=== PATIENT | male | born 1930 | race Caucasian/White ===

== ENCOUNTER 2020-01-27 11:32 | Inpatient (IN) | payer MEDICARE ==
[~2020-01-27] VITALS: Ht 182.9 cm; Wt 81.7 kg
[2020-01-27] MEDS ORDERED: SODIUM CHLORIDE FLUSH 10ML SYR IVF ONE (12:00)
[2020-01-27] MEDS ORDERED: WARF2.5T32 PO (12:11)
[2020-01-27] MEDS ORDERED: CHOL10003 PO (12:11)
[2020-01-27] MEDS ORDERED: AMOX1TAB64 PO (12:11)
[2020-01-27] MEDS ORDERED: LISI2.5T PO (12:11)
[2020-01-27] MEDS ORDERED: METO25TA35 PO (12:11)
[2020-01-27] MEDS ORDERED: ACET325T14 PO (12:11)
[2020-01-27] MEDS ORDERED: ASPI-496 PO (12:11)
[2020-01-27] MEDS ORDERED: DICL100G19 TD (12:11)
--- NOTE | 2020-01-27 12:32 | NUR ---
THIS IS AN 89 YO MALE PT BIB CARE FLIGHT FROM [place] WHERE PT WAS INTITIALLY SEEN AFTER PT STOPPED TAKING MEDS, STOPPED EATING AND DEVELOPED CONFUSION X 5 DAYS. DEVELOPED FEVER LAST NIGHT. PT RECEIVED ROCEPHIN, LASIX AND A HAMPTON CATHETER PRIOR TO ARRIVAL. HAMPTON CATHETER WAS PLACED AT [facility]. URINE APPEARS CLEAR AND YELLOW. PT AFEBRILE HERE. NO COUGHING, SOB OR DIFFICULTY BREATHING NOTED AT THIS TIME. PACED RHYTHM NOTED ON [employer] IN THE 70'S. PT DROWSY, BUT AWAKENS AND FOLLOWS COMMANDS AND ANSWERS BASIC QUESTIONS APPROPRIATELY. PER CARE FLIGHT PT WAS "CONFUSED". UNK BASELINE PER CAREFLIGHT. CALL LIGHT WITHIN REACH. WILL CONT TO MONITOR PT.
[2020-01-27 12:34] LABS: MEAN CORPUSCULAR HEMOGLOBIN 32.2 pg (27.5-34.5); MEAN CORPUSCULAR HGB CONC 33.2 g/dL (33.2-36.2); MEAN CORPUSCULAR VOLUME 97.1 fL (81-97); MEAN PLATELET VOLUME 6.8 fL (7.4-10.4); PLATELET COUNT 210 x10^3/uL (130-400); RED BLOOD COUNT 3.87 x10^6/uL (4.38-5.82); RED CELL DISTRIBUTION WIDTH 15.6 % (9.4-14.8)
--- NOTE | 2020-01-27 12:35 | NUR ---
PT TO IMAGING VIA [facility] WITH TRANSPORT STAFF.
[2020-01-27 12:43] LABS: ALANINE AMINOTRANSFERASE 16 U/L (12-78); ALBUMIN 2.7 g/dL (3.4-5.0); ANION GAP 8 mmol/L (5-15); CALCIUM 8.3 mg/dL (8.5-10.1); CHLORIDE 107 mmol/L (98-107)
[2020-01-27 12:45] LABS: ALKALINE PHOSPHATASE 97 U/L (45-117); BILIRUBIN,TOTAL 1.2 mg/dL (0.2-1.0)
[2020-01-27 12:48] LABS: BASOPHILS # (AUTO) 0.01 x10^3/uL (0-0.1); BASOPHILS % (AUTO) 0 % (0-1); EOSINOPHILS # (AUTO) 0.01 x10^3/uL (0-0.4); EOSINOPHILS % (AUTO) 0 % (1-7); LYMPHOCYTES # (AUTO) 0.28 x10^3/uL (1-3.4); LYMPHOCYTES % (AUTO) 2 % (22-44); MD SCAN; MONOCYTES # (AUTO) 0.62 x10^3/uL (0.2-0.8); MONOCYTES % (AUTO) 4 % (2-9); NEUTROPHILS # (AUTO) 13.59 x10^3/uL (1.8-6.8); NEUTROPHILS % (AUTO) 94 % (42-75)
[2020-01-27] MEDS ORDERED: POTASSIUM CHLORIDE 20 MEQ TAB.ER.PRT PO ONE (13:00)
--- NOTE | 2020-01-27 13:07 | NUR ---
PT FAILED SWALLOW EVAL COUGHING AFTER DRINKING ONE SMALL SIP OF WATER. DISCUSSED WITH VLADIMIR CORONEL AND PT WILL BE SWITCHED FROM PO TO IV K+. PT ON CONT BP, CARDIAC AND O2 MONITORS. CALL LIGHT WITHIN REACH.
[2020-01-27] MEDS ORDERED: POTASSIUM CHLORIDE 40 MEQ in SODIUM CHLORIDE 0.9% 500 ML IV ONE (13:30)
--- NOTE | 2020-01-27 14:51 | NUR ---
THIS TECH TRANSPORTED PT WITH [facility].
[2020-01-27 15:07] VITALS: BP 95/64
[2020-01-27] MEDS ORDERED: ACETAMINOPHEN 325 MG TABLET PO PRN (16:00)
[2020-01-27 16:15] LABS: INTERNATIONAL NORMALIZED RATIO 2.35 (0.93-1.1); PROTHROMBIN TIME 25.1 Seconds (9.6-11.5)
[2020-01-27 16:24] LABS: TROPONIN I 0.347 ng/mL (0.000-0.045)
[2020-01-27] MEDS: CEFTRIAXONE PMX 1GM/50ML 50 ML IV SCH (17:01)
[2020-01-27 17:47] LABS: MICROSCOPIC AUTO
[2020-01-27 17:49] LABS: CULTURE INDICATED? YES
[2020-01-27] MEDS: AZITHROMYCIN 500 MG in SODIUM CHLORIDE 0.9% 250 ML IV SCH (17:59)
[2020-01-27] MEDS ORDERED: WARFARIN 2 MG TABLET PO-COUM ONE (18:00)
[2020-01-27] MEDS ORDERED: METOPROLOL TARTRATE 25 MG TAB PO SCH (21:00)
[2020-01-27 21:58] VITALS: BP 94/58
[2020-01-27] MEDS: ACETAMINOPHEN 325 MG TABLET PO SCH (22:07)
[2020-01-27 22:26] LABS: TROPONIN I 0.291 ng/mL (0.000-0.045)
[2020-01-28 00:12] VITALS: BP 102/57
[2020-01-28 06:51] LABS: MEAN CORPUSCULAR HEMOGLOBIN 32.2 pg (27.5-34.5); MEAN CORPUSCULAR VOLUME 97.8 fL (81-97); MEAN PLATELET VOLUME 6.8 fL (7.4-10.4); PLATELET COUNT 171 x10^3/uL (130-400); RED BLOOD COUNT 4.17 x10^6/uL (4.38-5.82); RED CELL DISTRIBUTION WIDTH 15.9 % (9.4-14.8)
[2020-01-28 06:57] LABS: INTERNATIONAL NORMALIZED RATIO 3.17 (0.93-1.1)
[2020-01-28 06:59] LABS: CHLORIDE 104 mmol/L (98-107)
[2020-01-28 07:00] LABS: ALANINE AMINOTRANSFERASE 19 U/L (12-78); ALBUMIN 2.6 g/dL (3.4-5.0); ANION GAP 9 mmol/L (5-15); CALCIUM 8.7 mg/dL (8.5-10.1)
[2020-01-28 07:02] LABS: ALKALINE PHOSPHATASE 98 U/L (45-117); BILIRUBIN,TOTAL 0.7 mg/dL (0.2-1.0); TOTAL PROTEIN 7.1 g/dL (6.4-8.2)
[2020-01-28 07:14] LABS: BASOPHILS % (AUTO) 0 % (0-1); EOSINOPHILS # (AUTO) 0.01 x10^3/uL (0-0.4); EOSINOPHILS % (AUTO) 0 % (1-7); LYMPHOCYTES # (AUTO) 0.56 x10^3/uL (1-3.4); LYMPHOCYTES % (AUTO) 7 % (22-44); MD SCAN; MONOCYTES # (AUTO) 0.55 x10^3/uL (0.2-0.8); MONOCYTES % (AUTO) 7 % (2-9); NEUTROPHILS # (AUTO) 7.31 x10^3/uL (1.8-6.8); NEUTROPHILS % (AUTO) 87 % (42-75)
[2020-01-28] MEDS ORDERED: HOLD COUMADIN MC PRN (07:30)
[2020-01-28] MEDS ORDERED: MAGNESIUM SULFATE PMX 2GM/50ML 50 ML IV ONE (07:30)
[2020-01-28 08:40] VITALS: BP 131/79
[2020-01-28] MEDS: ASPIRIN 81 MG TABLET EC PO SCH (09:00)
--- NOTE | 2020-01-28 12:10 | NUR ---
REC: [facility]IC[facility] SPECIALIST intervention in SNF. Addendum: 01/28/20 at 1211 by Camila KUNZ Amended: Links added.
[2020-01-28 12:28] VITALS: BP 155/79
[2020-01-28] MEDS ORDERED: HALOPERIDOL 5 MG/ML IV PRN (18:00)
[2020-01-28] MEDS: CEFTRIAXONE PMX 1GM/50ML 50 ML IV SCH (18:13)
[2020-01-28] MEDS: AZITHROMYCIN 500 MG in SODIUM CHLORIDE 0.9% 250 ML IV SCH (18:13)
[2020-01-28 18:26] VITALS: BP 143/85
[2020-01-28] MEDS: ACETAMINOPHEN 325 MG TABLET PO SCH (19:47)
[2020-01-29 04:00] VITALS: BP 143/83
[2020-01-29] MEDS ORDERED: FURO10DI PO (05:46)
[2020-01-29 06:23] LABS: BASOPHILS % (AUTO) 0 % (0-1); EOSINOPHILS # (AUTO) 0.05 x10^3/uL (0-0.4); EOSINOPHILS % (AUTO) 1 % (1-7); INTERNATIONAL NORMALIZED RATIO 2.63 (0.93-1.1); LYMPHOCYTES # (AUTO) 0.78 x10^3/uL (1-3.4); LYMPHOCYTES % (AUTO) 11 % (22-44); MD NO; MEAN CORPUSCULAR HEMOGLOBIN 32.3 pg (27.5-34.5); MEAN CORPUSCULAR HGB CONC 33.5 g/dL (33.2-36.2); MEAN CORPUSCULAR VOLUME 96.3 fL (81-97); MEAN PLATELET VOLUME 7.4 fL (7.4-10.4); MONOCYTES # (AUTO) 0.78 x10^3/uL (0.2-0.8); MONOCYTES % (AUTO) 11 % (2-9); NEUTROPHILS # (AUTO) 5.76 x10^3/uL (1.8-6.8); NEUTROPHILS % (AUTO) 78 % (42-75); PLATELET COUNT 160 x10^3/uL (130-400); PROTHROMBIN TIME 28.1 Seconds (9.6-11.5); RED BLOOD COUNT 3.85 x10^6/uL (4.38-5.82); RED CELL DISTRIBUTION WIDTH 15.8 % (9.4-14.8)
[2020-01-29 06:27] LABS: ANION GAP 12 mmol/L (5-15); CALCIUM 8.3 mg/dL (8.5-10.1); CHLORIDE 106 mmol/L (98-107)
[2020-01-29 06:28] LABS: CREATININE 1.62 mg/dL (0.7-1.3)
[2020-01-29] MEDS ORDERED: VANCOMYCIN PER PHARMACY MC PRN (08:00)
[2020-01-29] MEDS ORDERED: PHARMACOKINETIC CONSULTATION MC ONE (08:00)
[2020-01-29] MEDS ORDERED: hydrALAzine 20 MG/ML, 1ML IVPush PRN (08:00)
[2020-01-29] MEDS ORDERED: PHARMACOKINETIC MONITORING MC PRN (08:00)
[2020-01-29] MEDS ORDERED: LABETALOL 5MG/ML, 20ML IVPush PRN (08:00)
[2020-01-29 08:17] VITALS: BP 145/93
[2020-01-29] MEDS: ASPIRIN 81 MG TABLET EC PO SCH (08:23)
[2020-01-29] MEDS ORDERED: VANCOMYCIN 1,600 MG in SODIUM CHLORIDE 0.9% 250 ML IV SCH (09:00)
[2020-01-29 15:01] VITALS: BP 144/87
--- NOTE | 2020-01-29 15:33 | NUR ---
Rec: chopped/thin liquids; do not anticipate need for ICE [employer]URF[employer] MACHINE [employer]ORS intervention at time of discharge. Addendum: 01/29/20 at 1534 by Camila KUNZ Amended: Links added.
[2020-01-29] MEDS: CEFTRIAXONE PMX 1GM/50ML 50 ML IV SCH (15:40)
[2020-01-29] MEDS ORDERED: WARFARIN 2.5 MG TABLET PO-COUM ONE (18:00)
[2020-01-29 19:34] VITALS: BP 138/87
[2020-01-29] MEDS: ACETAMINOPHEN 325 MG TABLET PO SCH (20:53)
[2020-01-30 00:34] VITALS: BP 149/86
[2020-01-30 06:15] VITALS: BP 148/89
[2020-01-30 06:24] LABS: BASOPHILS # (AUTO) 0.02 x10^3/uL (0-0.1); BASOPHILS % (AUTO) 0 % (0-1); EOSINOPHILS # (AUTO) 0.05 x10^3/uL (0-0.4); EOSINOPHILS % (AUTO) 1 % (1-7); LYMPHOCYTES % (AUTO) 17 % (22-44); MD NO; MEAN CORPUSCULAR HEMOGLOBIN 31.9 pg (27.5-34.5); MEAN CORPUSCULAR HGB CONC 32.9 g/dL (33.2-36.2); MEAN CORPUSCULAR VOLUME 96.9 fL (81-97); MEAN PLATELET VOLUME 7.7 fL (7.4-10.4); MONOCYTES # (AUTO) 0.97 x10^3/uL (0.2-0.8); MONOCYTES % (AUTO) 13 % (2-9); NEUTROPHILS # (AUTO) 5.42 x10^3/uL (1.8-6.8); NEUTROPHILS % (AUTO) 70 % (42-75); PLATELET COUNT 160 x10^3/uL (130-400); RED BLOOD COUNT 3.98 x10^6/uL (4.38-5.82)
[2020-01-30 06:32] LABS: ANION GAP 12 mmol/L (5-15); CALCIUM 8.6 mg/dL (8.5-10.1); CHLORIDE 106 mmol/L (98-107); CREATININE 1.62 mg/dL (0.7-1.3)
[2020-01-30 06:42] LABS: INTERNATIONAL NORMALIZED RATIO 2.86 (0.93-1.1); PROTHROMBIN TIME 30.6 Seconds (9.6-11.5)
[2020-01-30] MEDS ORDERED: POTASSIUM CHLORIDE 20 MEQ TAB.ER.PRT PO ONE (08:00)
[2020-01-30] MEDS ORDERED: POTASSIUM CHLORIDE 20 MEQ PACKET ONE (08:58)
[2020-01-30] MEDS: LISINOPRIL 5 MG TABLET PO SCH (09:26)
[2020-01-30] MEDS: ASPIRIN 81 MG TABLET EC PO SCH (09:26)
[2020-01-30 12:28] VITALS: BP 150/91
[2020-01-30 16:14] VITALS: BP 138/86
[2020-01-30] MEDS: CEFTRIAXONE PMX 1GM/50ML 50 ML IV SCH (16:48)
[2020-01-30] MEDS ORDERED: WARFARIN 2.5 MG TABLET PO-COUM ONE (18:00)
[2020-01-30] MEDS: ACETAMINOPHEN 325 MG TABLET PO SCH (20:02)
[2020-01-30 20:50] VITALS: BP 155/89
[2020-01-31 04:58] LABS: INTERNATIONAL NORMALIZED RATIO 3.23 (0.93-1.1); PROTHROMBIN TIME 34.7 Seconds (9.6-11.5)
[2020-01-31 05:02] LABS: ANION GAP 7 mmol/L (5-15); CALCIUM 8.3 mg/dL (8.5-10.1); CHLORIDE 108 mmol/L (98-107); CREATININE 1.34 mg/dL (0.7-1.3)
[2020-01-31] MEDS ORDERED: PHARMACY MAY ADJ FOR RENAL FX MC PRN (07:00)
[2020-01-31] MEDS: CEFAZOLIN PMX 1GM/50ML 50 ML IV SCH ×3 (08:00→23:19)
[2020-01-31] MEDS: ASPIRIN 81 MG TABLET EC PO SCH (08:08)
[2020-01-31] MEDS: LISINOPRIL 5 MG TABLET PO SCH (08:08)
[2020-01-31 08:11] VITALS: BP 156/87
--- NOTE | 2020-01-31 12:47 | NUR ---
DC to SNF for skilled PT to reduce fall risk Addendum: 01/31/20 at 1250 by Christos Haynes PT Amended: Links added.
[2020-01-31 14:33] VITALS: BP 159/95
[2020-01-31] MEDS ORDERED: WARFARIN 2 MG TABLET PO-COUM ONE (18:00)
[2020-01-31 19:33] VITALS: BP 155/86
[2020-01-31] MEDS: ACETAMINOPHEN 325 MG TABLET PO SCH (19:54)
[2020-02-01 00:44] VITALS: BP 152/87
[2020-02-01 05:59] LABS: BASOPHILS # (AUTO) 0.02 x10^3/uL (0-0.1); BASOPHILS % (AUTO) 0 % (0-1); EOSINOPHILS # (AUTO) 0.13 x10^3/uL (0-0.4); EOSINOPHILS % (AUTO) 2 % (1-7); INTERNATIONAL NORMALIZED RATIO 3.43 (0.93-1.1); LYMPHOCYTES # (AUTO) 1.43 x10^3/uL (1-3.4); LYMPHOCYTES % (AUTO) 21 % (22-44); MD NO; MEAN CORPUSCULAR HGB CONC 33.2 g/dL (33.2-36.2); MEAN CORPUSCULAR VOLUME 96.3 fL (81-97); MEAN PLATELET VOLUME 7.5 fL (7.4-10.4); MONOCYTES # (AUTO) 0.89 x10^3/uL (0.2-0.8); MONOCYTES % (AUTO) 13 % (2-9); NEUTROPHILS # (AUTO) 4.43 x10^3/uL (1.8-6.8); NEUTROPHILS % (AUTO) 64 % (42-75); PLATELET COUNT 203 x10^3/uL (130-400); PROTHROMBIN TIME 36.8 Seconds (9.6-11.5); RED BLOOD COUNT 4.01 x10^6/uL (4.38-5.82); RED CELL DISTRIBUTION WIDTH 15.5 % (9.4-14.8)
[2020-02-01 06:03] LABS: ALBUMIN 2.5 g/dL (3.4-5.0); ANION GAP 9 mmol/L (5-15); CALCIUM 8.5 mg/dL (8.5-10.1); CHLORIDE 105 mmol/L (98-107)
[2020-02-01 06:07] LABS: ALANINE AMINOTRANSFERASE 18 U/L (12-78); ALKALINE PHOSPHATASE 108 U/L (45-117); BILIRUBIN,TOTAL 0.5 mg/dL (0.2-1.0); CREATININE 1.29 mg/dL (0.7-1.3); TOTAL PROTEIN 6.8 g/dL (6.4-8.2)
[2020-02-01 06:44] VITALS: BP 148/86
[2020-02-01] MEDS: ASPIRIN 81 MG TABLET EC PO SCH (07:31)
[2020-02-01] MEDS: CEFAZOLIN PMX 1GM/50ML 50 ML IV SCH (07:31)
[2020-02-01] MEDS: LISINOPRIL 5 MG TABLET PO SCH (07:32)
[2020-02-01] MEDS ORDERED: POTASSIUM CHLORIDE 20 MEQ TAB.ER.PRT PO ONE (08:31)
[2020-02-01] MEDS ORDERED: LISINOPRIL 10 MG TABLET PO SCH (09:00)
[2020-02-01] MEDS: CEFAZOLIN PMX 2GM/50ML 50 ML IVPB SCH ×2 (10:28→18:15)
[2020-02-01 13:00] VITALS: BP 145/85
[2020-02-01] MEDS ORDERED: WARFARIN 1 MG TABLET PO-COUM ONE (18:00)
[2020-02-01 19:31] VITALS: BP 151/85
[2020-02-01] MEDS: ACETAMINOPHEN 325 MG TABLET PO SCH (20:33)
[2020-02-02 00:22] VITALS: BP 141/86
[2020-02-02] MEDS: CEFAZOLIN PMX 2GM/50ML 50 ML IVPB SCH ×3 (03:00→18:01)
[2020-02-02 05:46] LABS: BASOPHILS # (AUTO) 0.04 x10^3/uL (0-0.1); BASOPHILS % (AUTO) 1 % (0-1); EOSINOPHILS % (AUTO) 2 % (1-7); LYMPHOCYTES # (AUTO) 1.73 x10^3/uL (1-3.4); LYMPHOCYTES % (AUTO) 21 % (22-44); MD NO; MEAN CORPUSCULAR HEMOGLOBIN 31.6 pg (27.5-34.5); MEAN CORPUSCULAR VOLUME 95.9 fL (81-97); MEAN PLATELET VOLUME 7.2 fL (7.4-10.4); MONOCYTES # (AUTO) 0.82 x10^3/uL (0.2-0.8); MONOCYTES % (AUTO) 10 % (2-9); NEUTROPHILS # (AUTO) 5.33 x10^3/uL (1.8-6.8); NEUTROPHILS % (AUTO) 66 % (42-75); PLATELET COUNT 227 x10^3/uL (130-400); RED BLOOD COUNT 3.99 x10^6/uL (4.38-5.82); RED CELL DISTRIBUTION WIDTH 15.6 % (9.4-14.8)
[2020-02-02 05:48] LABS: INTERNATIONAL NORMALIZED RATIO 2.74 (0.93-1.1); PROTHROMBIN TIME 29.3 Seconds (9.6-11.5)
[2020-02-02 05:52] LABS: ALBUMIN 2.5 g/dL (3.4-5.0); ANION GAP 9 mmol/L (5-15); CHLORIDE 106 mmol/L (98-107)
[2020-02-02 05:56] LABS: ALANINE AMINOTRANSFERASE 12 U/L (12-78); ALKALINE PHOSPHATASE 97 U/L (45-117); BILIRUBIN,TOTAL 0.6 mg/dL (0.2-1.0); TOTAL PROTEIN 6.7 g/dL (6.4-8.2)
[2020-02-02 07:14] VITALS: BP 157/92
[2020-02-02] MEDS: POTASSIUM CHLORIDE 20 MEQ TAB.ER.PRT PO SCH ×2 (10:37→18:00)
[2020-02-02] MEDS: ASPIRIN 81 MG TABLET EC PO SCH (10:37)
[2020-02-02] MEDS: AMLODIPINE 10 MG TAB PO SCH (10:37)
[2020-02-02] MEDS: CHLORTHALIDONE 25 MG TABLET PO SCH (10:38)
[2020-02-02] MEDS ORDERED: PROPOFOL 10 MG/ML, 20ML ONE (13:21)
[2020-02-02 14:16] VITALS: BP 110/65
[2020-02-02] MEDS ORDERED: WARFARIN 2 MG TABLET PO-COUM ONE (18:00)
[2020-02-02 19:32] VITALS: BP 133/88
[2020-02-02] MEDS: ACETAMINOPHEN 325 MG TABLET PO SCH (19:40)
[2020-02-03 01:29] VITALS: BP 146/88
[2020-02-03] MEDS: CEFAZOLIN PMX 2GM/50ML 50 ML IVPB SCH ×3 (01:58→17:28)
[2020-02-03 06:29] LABS: BASOPHILS # (AUTO) 0.02 x10^3/uL (0-0.1); BASOPHILS % (AUTO) 0 % (0-1); EOSINOPHILS # (AUTO) 0.22 x10^3/uL (0-0.4); EOSINOPHILS % (AUTO) 3 % (1-7); LYMPHOCYTES # (AUTO) 1.38 x10^3/uL (1-3.4); LYMPHOCYTES % (AUTO) 17 % (22-44); MD NO; MEAN CORPUSCULAR HEMOGLOBIN 31.9 pg (27.5-34.5); MEAN CORPUSCULAR HGB CONC 33.1 g/dL (33.2-36.2); MEAN CORPUSCULAR VOLUME 96.4 fL (81-97); MEAN PLATELET VOLUME 7.1 fL (7.4-10.4); MONOCYTES # (AUTO) 0.72 x10^3/uL (0.2-0.8); MONOCYTES % (AUTO) 9 % (2-9); NEUTROPHILS # (AUTO) 5.68 x10^3/uL (1.8-6.8); NEUTROPHILS % (AUTO) 71 % (42-75); PLATELET COUNT 296 x10^3/uL (130-400); RED CELL DISTRIBUTION WIDTH 15.9 % (9.4-14.8)
[2020-02-03 06:32] LABS: INTERNATIONAL NORMALIZED RATIO 2.38 (0.93-1.1); PROTHROMBIN TIME 25.5 Seconds (9.6-11.5)
[2020-02-03 06:37] LABS: ALBUMIN 2.7 g/dL (3.4-5.0); ANION GAP 10 mmol/L (5-15); CALCIUM 8.5 mg/dL (8.5-10.1); CHLORIDE 106 mmol/L (98-107)
[2020-02-03 06:41] LABS: ALANINE AMINOTRANSFERASE 8 U/L (12-78); ALKALINE PHOSPHATASE 109 U/L (45-117); BILIRUBIN,TOTAL 0.5 mg/dL (0.2-1.0); CREATININE 1.23 mg/dL (0.7-1.3); TOTAL PROTEIN 7.3 g/dL (6.4-8.2)
[2020-02-03 08:22] VITALS: BP 135/85
[2020-02-03] MEDS: POTASSIUM CHLORIDE 20 MEQ TAB.ER.PRT PO SCH ×2 (09:10→17:28)
[2020-02-03] MEDS: ASPIRIN 81 MG TABLET EC PO SCH (09:10)
[2020-02-03] MEDS: CHLORTHALIDONE 25 MG TABLET PO SCH (09:11)
[2020-02-03] MEDS: AMLODIPINE 10 MG TAB PO SCH (09:11)
[2020-02-03 13:59] VITALS: BP 116/72
[2020-02-03] MEDS ORDERED: AMLO10TA8 PO (14:49)
[2020-02-03] MEDS ORDERED: POTA20TA6 PO (14:49)
[2020-02-03] MEDS ORDERED: HYDR-3341 PO (14:49)
[2020-02-03] MEDS ORDERED: CHLO25TA PO (14:49)
[2020-02-03] MEDS ORDERED: WARFARIN 2 MG TABLET PO-COUM ONE (18:00)
== END 2020-02-03 18:21 | DRG 871 ==
LOC: ED 12:31 → EDIP 13:10 → 4NE 13:56 → 3N 01-30 15:57
PROVIDERS: ADMIT Internal Medicine; ATTEND Internal Medicine
PROC: 0T9B70Z Drainage of Bladder with Drainage Device, Via Natural or Artificial Opening (ICD-10-PCS; 2020-01-27)
PROC: 02HV33Z Insertion of Infusion Device into Superior Vena Cava, Percutaneous Approach (ICD-10-PCS; principal; 2020-02-03)
PROC: B5181ZA Fluoroscopy of Superior Vena Cava using Low Osmolar Contrast, Guidance (ICD-10-PCS; 2020-02-03)
PROC: B548ZZA Ultrasonography of Superior Vena Cava, Guidance (ICD-10-PCS; 2020-02-03)
DX: A41.2 Sepsis due to unspecified staphylococcus (principal); G93.41 Metabolic encephalopathy; J18.9 Pneumonia, unspecified organism; N17.0 Acute kidney failure with tubular necrosis; D68.69 Other thrombophilia; I13.0 Hypertensive heart and chronic kidney disease with heart failure and stage 1 through stage 4 chronic kidney disease, or unspecified chronic kidney disease; I48.21 Permanent atrial fibrillation; E87.6 Hypokalemia; E83.42 Hypomagnesemia; D64.9 Anemia, unspecified; H91.90 Unspecified hearing loss, unspecified ear; I08.1 Rheumatic disorders of both mitral and tricuspid valves; I25.10 Atherosclerotic heart disease of native coronary artery without angina pectoris; I50.9 Heart failure, unspecified; N18.9 Chronic kidney disease, unspecified; R62.7 Adult failure to thrive; Z78.9 Other specified health status; Z79.01 Long term (current) use of anticoagulants; Z79.899 Other long term (current) drug therapy; Z87.891 Personal history of nicotine dependence; Z95.0 Presence of cardiac pacemaker; Z95.1 Presence of aortocoronary bypass graft; Z95.2 Presence of prosthetic heart valve; Z20.828 Contact with and (suspected) exposure to other viral communicable diseases; Z68.24 Body mass index [BMI] 24.0-24.9, adult
CPT/HCPCS: 36415; 36573; 70450; 71045; 71260; 76604; 80048; 80053; 81001; 83605; 83735; 84100; 84145; 84484; 85025; 85610; 87040; 87077; 87086; 87147; 87186; 93005; 93306; 93312; 93325; 96374; 99285; G0378; J0456; J0690; J0696; J2704; J3370; J3480; C1751; J3475; J7040; J7050